=== PATIENT | female | born 1955 | race Two or more races ===

== ENCOUNTER 2017-09-09 05:47 | Day surgery (SDC) | payer BC ==
[2017-09-08 10:03] VITALS: BMI 27.5
[2017-09-09] VITALS (12 sets, daily range): BP systolic 121–172; BP diastolic 79–102; PULSE 60–75; RESP 15–18; Ht 165.1 cm; Wt 72.2 kg
[~2017-09-09] VITALS: Ht 165.1 cm; Wt 72.2 kg
[2017-09-09] MEDS ORDERED: DEXAMETHASONE 4 MG/ML 1 ML INJ ONE (07:11)
[2017-09-09] MEDS ORDERED: LIDOCAINE 2% (MDV) 20 ML INJ ONE (07:11)
[2017-09-09] MEDS ORDERED: BUPIVACAINE 0.5% (SDV) 30 ML INJ ONE (07:11)
[2017-09-09] MEDS ORDERED: POLYMYXIN/BACITRACIN 1L IRRIG ONE (07:11)
--- NOTE | 2017-09-09 07:20 | HPN ---
Date/Time of Note Date/Time of Note DATE: 09/09/17 TIME: 07:20 Interval H&P Admission Note Pt. seen H&P reviewed: No system changes WAQAS CASTREJON DPM Sep 09, 2017 07:20
[2017-09-09] MEDS ORDERED: MIDAZOLAM 1 MG/ML 2 ML INJ ONE (07:34)
[2017-09-09] MEDS ORDERED: FENTAnyl 50 MCG/ML VIAL ONE (07:34)
[2017-09-09] MEDS ORDERED: PROPOFOL 20 ML ONE (07:34)
[2017-09-09] MEDS ORDERED: CEFAZOLIN 1 GM INJ ONE (07:36)
[2017-09-09] MEDS ORDERED: POLYMYXIN/BACITRACIN 1L IRRIG IRR ONE (07:53)
[2017-09-09] MEDS ORDERED: LIDOCAINE 2% (MDV) 20 ML INJ INJ ONE (08:01)
[2017-09-09] MEDS ORDERED: KETOROLAC 30 MG INJ ONE (08:52)
[2017-09-09] MEDS ORDERED: ONDANSETRON 4 MG INJ ONE (08:53)
[2017-09-09] MEDS ORDERED: hydrALAzine 20 MG INJ ONE (09:23)
[2017-09-09] MEDS ORDERED: hydrALAzine 20 MG INJ IV ONE (09:30)
--- NOTE | 2017-09-09 09:43 | OPR ---
DATE OF OPERATION: 09/09/2017 SURGEON: Eric Kennedy DPM. DIRECTOR OF INTELLIGENCE: Rojas Ardon DPM. ANESTHESIOLOGIST: Dr. Leos. ANESTHESIA: Local with IV sedation. PREOPERATIVE DIAGNOSIS: Painful bunion with hallux valgus, right foot. POSTOPERATIVE DIAGNOSIS: Painful bunion with hallux valgus, right foot. PROCEDURE PERFORMED: Bunionectomy with Lapidus procedure, right first metatarsocuneiform joint. DESCRIPTION OF PROCEDURE: The patient was brought into the operating room, placed on a table in a s ecure supine position. Cardiac monitoring, IV sedation and an ankle pneumatic tourniquet were utili zed for this case. Preoperatively, a total of 20 mL of 0.5% Marcaine plain mixed with 2% lidocaine plain were infiltrated into the right foot in the form of a Weaver block. Upon achieving anesthesia, the right foot and leg were prepped and draped in the usual sterile manner. The ankle pneumatic samantha rniquet was then inflated to 250 mmHg. Procedure #1 was then performed, bunionectomy with Lapidus p rocedure, right foot. A 3 cm incision was placed along the medial aspect of the first metatarsophal angeal joint. The incision centered at the metatarsophalangeal joint exposing the hypertrophic medi al eminence. The hypertrophic medial eminence was transected with a power sagittal saw. A lateral release was performed through the joint. Now we turned our attention more proximally for the Lapidu s procedure. The incision was extended proximally an additional 5 cm to the first metatarsocuneifor m joint. The first metatarsocuneiform joint was identified and using the [employer] contractor, the joint was distracted. The cartilaginous surface on the medial cuneiform and the base of the 1st me tatarsal was denuded with a sharp curved Gomes elevator. In addition to the Gomes elevator, a power jalen p was used to resect all cartilaginous surface from the joint. The joint surface was fenestrated wi th a 0.062 K-wire. Good bleeding bone was noted. Temporary fixation with the first metatarsocuneif orm arthrodesis site was achieved with an 0.062 Anisa wire. Intraoperative fluoroscopy was util ized for assistance in maintaining the correction at the metatarsal of the metatarsal primus varus a ngle. Satisfactory alignment was noted with temporary fixation on the intraoperative fluoroscopy. A 4.0 x 38 mm cannulated James screw was inserted from dorsal distal to proximal plantar crossing the arthrodesis site. Again, the intraoperative fluoroscopy was utilized to view the screw placemen t which was satisfactory. Next, the Lapidus plate was utilized medially with locking screws. The 1 6 mm x 3.0 mm screws were used at the first metatarsal and 18 mm x 3.0 mm screws x2 were utilized at the medial cuneiform. The surgical site was irrigated with sterile saline mixed with bacitracin so lution. The capsule was closed with 2-0 Vicryl simple interrupted sutures. Subcutaneous tissue was closed with 4-0 Vicryl simple interrupted sutures. The skin edges were reapproximated with a runni ng 3-0 Prolene subcuticular stitch. The dressing consisted of Xeroform gauze, 1/4-inch Steri-Strips , tincture of benzoin, 4 x 4 gauze, 4-inch Kerlix roll into a semi-compressive dressing. Immediate hyperemia was noted to all digits of the right foot upon deflating the ankle tourniquet. No intraop erative complications were encountered. The patient tolerated the above procedure well. She left t he OR with vital signs stable and satisfactory. A posterior splint was also applied before leaving the operating room. Patient is to remain completely nonweightbearing. We will see the patient back in 1 week in the office. Dictated By: ERIC RIBEIRO Conf#: [id number] DID#: [id number]
[2017-09-09] MEDS ORDERED: LABETALOL HCL 20MG INJ IV PRN (10:00)
[2017-09-09] MEDS ORDERED: EPHEDrine SULFATE 50 MG/5 ML SYG IV PRN (10:00)
[2017-09-09] MEDS ORDERED: DIPHENHYDRAMINE 50 MG INJ IV PRN (10:00)
[2017-09-09] MEDS ORDERED: MIDAZOLAM 1 MG/ML 2 ML INJ IV PRN (10:00)
[2017-09-09] MEDS ORDERED: MEPERIDINE 25 MG INJ IV PRN (10:00)
[2017-09-09] MEDS ORDERED: HYDROCODONE/APAP (10/325) TAB PO PRN (10:00)
[2017-09-09] MEDS ORDERED: ONDANSETRON 4 MG INJ IV PRN (10:00)
[2017-09-09] MEDS ORDERED: FENTAnyl 50 MCG/ML VIAL IV PRN ×3 (10:00)
[2017-09-09] MEDS ORDERED: METOCLOPRAMIDE 10 MG INJ IV PRN (10:00)
[2017-09-09] MEDS ORDERED: hydrALAzine 20 MG INJ IV PRN (10:00)
[2017-09-09] MEDS ORDERED: OXYCODONE/ACETAMINOPHEN (5/325) TAB PO PRN ×2 (10:00)
== END 2017-09-09 10:43 | disposition home or self-care (01) ==
LOC: SDS 05:47
PROVIDERS: ATTEND Podiatrist Primary Podiatric Medicine
DX: M21.611 Bunion of right foot (principal); M20.11 Hallux valgus (acquired), right foot; I10 Essential (primary) hypertension
CPT/HCPCS: 28297; 73630; J0360; J0690; J1885; J2250; J2405; J3010; J1100